=== PATIENT | female | born 1950 | race Caucasian/White ===

== ENCOUNTER 2016-09-15 04:32 | Observation (INO) | payer OTHER ==
[2016-09-15] VITALS (7 sets, daily range): BP systolic 119–161; BP diastolic 63–82; PULSE 57–69; RESP 18–20; TEMP 96.1–97.9; O2SAT 97–100
[~2016-09-15] VITALS: Ht 149.9 cm; Wt 54.1 kg
[2016-09-15] MEDS ORDERED: SODIUM CHLORIDE 0.9% FLUSH 5 ML FLUSH IVF PRN ×3 (05:15→07:30)
[2016-09-15] MEDS ORDERED: ASPIRIN 81 MG CHEW TAB PO ONE (05:15)
[2016-09-15 05:21] LABS: AUTOMATED NEUTROPHIL # 2.3 TH/MM3 (1.8-7.7); BASOPHIL % 0.9 % (0.0-2.0); EOSINOPHIL # 0.1 TH/MM3 (0-0.4); EOSINOPHIL % 2.5 % (0.0-4.0); HEMATOCRIT 37.1 % (35.0-46.0); HEMO FLAGS DIFF FINAL; LYMPH % 29.7 % (9.0-44.0); LYMPHOCYTE # 1.3 TH/MM3 (1.0-4.8); MEAN CELL VOLUME 83.6 FL (80.0-100.0); MEAN CORPUSCULAR HEMOGLOBIN 27.9 PG (27.0-34.0); MEAN CORPUSCULAR HGB CONC 33.4 % (32.0-36.0); MONO % 12.6 % (0.0-8.0); NEUT % 54.3 % (16.0-70.0); PLATELET COUNT 168 TH/MM3 (150-450); RED BLOOD COUNT 4.44 MIL/MM3 (4.00-5.30); RED CELL DISTRIBUTION WIDTH 13.4 % (11.6-17.2); WHITE BLOOD COUNT 4.2 TH/MM3 (4.0-11.0)
[2016-09-15 05:27] LABS: POTASSIUM 3.7 MEQ/L (3.5-5.1)
[2016-09-15 05:30] LABS: BICARBONATE 27.5 MEQ/L (21.0-32.0); MAGNESIUM 2.2 MG/DL (1.5-2.5)
[2016-09-15 05:32] LABS: APTT (PATIENT) 27.3 SEC (24.3-30.1); PROTHROMBIN TIME - PATIENT 11.4 SEC (9.8-11.6)
--- NOTE | 2016-09-15 06:08 | PD ---
HPI Chief Complaint: Chest Pain Time Seen by Provider: 05:03 Travel History International Travel<30 days: No Contact w/Intl Traveler<30days: No Traveled to known affect area: No History of Present Illness HPI 65-year-old female presents to the emergency department for complaint of chest pain since awakening at 3 AM with radiation into the left upper extremity. Patient states that due to persistent pain follow decided to come to the emergency room for evaluation. In triage pain is 4/10 in intensity presently pain is 0/10 in intensity. Patient did not take aspirin prior to arrival to the emergency department. Patient denies previous history of chest pain. Patient does not describe pain as pleuritic in nature. Patient has past medical history significant for an or rectal carcinoma with resection and radiation and chemotherapy. Patient also has history of type 2 diabetes, peptic ulcer disease, dyslipidemia, depression, previous carpal tunnel syndrome also ganglion cyst removal from left wrist in 1973 and cerebral aneurysm clipping of the right frontal lobe in 1983. Patient is unable to identify exacerbating or alleviating factors. Patient does report prior to going to bed last evening her blood pressure was quite elevated and she was very upset but she was not having chest pain or left upper extremity discomfort at that time. No shortness of breath, no nausea, no vomiting. Patient has been noted by her primary care physician to have elevated blood pressure and borderline diabetes both of which are being managed with diet at this time. PFSH Past Medical History Narrative Medical type 2 diabetes, peptic ulcer disease, dyslipidemia, depression, previous carpal tunnel syndrome ganglion cyst removal from left wrist in 1973 cerebral aneurysm clipping of the right frontal lobe in 1983 no tobacco use nursing notes reviewed Cancer: Yes (HX COLON CA 2007 TX RADIATION TX & CHEMO;) Cardiovascular Problems: No Diabetes: Yes (TYPE ii DIABETES - NO MEDS DIET & EXERCISE CONTROL) Patient Takes Glucophage: No Diminished Hearing: No Endocrine: No Gastrointestinal Disorders: Yes (HX COLON CA 2008 TX RADIATION TX & CHEMO; HX PEPTIC ULCER) Genitourinary: Yes (CHRONIC URINARY TRACT INFECTIONS; HX KIDNEY STONES) Hepatitis: No Hiatal Hernia: No Immune Disorder: No Musculoskeletal: Yes (MINOR ARTHRITIS LEFT KNEE, MILD ARTHRITIS SUZANNA FINGERS) Neurologic: Yes (CEREBRAL ANEURYSM (CLIPPED X 3) FRONTAL LOBE 1983) Psychiatric: Yes (DEPRESSION) Reproductive: No Respiratory: No Thyroid Disease: No Tetanus Vaccination: Unknown Influenza Vaccination: No Past Surgical History Abdominal Surgery: No AICD: No Body Medical Devices: CEREBRAL ANEURYSM (CLIPPED X 3) FRONTAL LOBE Cardiac Surgery: No Ear Surgery: No Endocrine Surgery: No Eye Surgery: No Genitourinary Surgery: Yes (CYSTOSCOPY X 2 2013 & 2008) Gynecologic Surgery: No Joint Replacement: No Neurologic Surgery: Yes (FRONTAL ANEURYSM 3 CLIPS 1983) Oral Surgery: No Pacemaker: No Thoracic Surgery: No Other Surgery: Yes Social History Alcohol Use: No Tobacco Use: No Substance Use: No Allergies-Medications (Allergen,Severity, Reaction): Coded Allergies: Iodine (Verified Allergy, Unknown, HIVES, ITCHING, 09/15/16) Cipro (Verified Adverse Reaction, Unknown, Nausea/Vomiting, 09/15/16) Uncoded Allergies: MRI PRECAUTIONS (Allergy, Unknown, 01/04/14) PATIENT HAS 3 METAL CLIPS FRONTAL RIGHT LOBE FROM ANEURYSM 1984 - Reported Meds & Prescriptions Reported Meds & Active Scripts Active No Active Prescriptions or Reported Medications Review of Systems Except as stated in HPI: all other systems reviewed are Neg General / Constitutional: No: Fever, Chills HENT: No: Congestion Respiratory: No: Shortness of Breath Gastrointestinal: No: Nausea Genitourinary: No: Flank Pain Musculoskeletal: No: Myalgias, Arthralgias Skin: No Rash Neurologic: No: Weakness Psychiatric: Positive: Anxiety Endocrine: No: Heat Intolerance Hematologic/Lymphatic: No: Easy Bruising Physical Exam Narrative GENERAL: Well developed well-nourished female in no acute distress no respiratory distress SKIN: Warm and dry. HEAD: Normocephalic. EYES: No scleral icterus. No injection or drainage. NECK: Supple, trachea midline. No JVD or lymphadenopathy. CARDIOVASCULAR: Regular rate and rhythm without murmurs, gallops, or rubs. RESPIRATORY: Breath sounds equal bilaterally. No accessory muscle use. GASTROINTESTINAL: Abdomen soft, non-tender, nondistended. MUSCULOSKELETAL: No cyanosis, or edema. BACK: Nontender without obvious deformity. No CVA tenderness. Data Data Last Documented VS Vital Signs Date Time Temp Pulse Resp B/P Pulse Ox O2 Delivery O2 Flow Rate FiO2 09/15/16 05:10 69 20 149/79 99 09/15/16 05:10 Nasal Cannula 2 Orders Electrocardiogram (09/15/16 05:03) Basic Metabolic Panel (Bmp) (09/15/16 05:03) Ckmb (Isoenzyme) Profile (09/15/16 05:03) Complete Blood Count With Diff (09/15/16 05:03) Magnesium (Mg) (09/15/16 05:03) Prothrombin Time / Inr (Pt) (09/15/16 05:03) Act Partial Throm Time (Ptt) (09/15/16 05:03) Troponin I (09/15/16 05:03) Chest, Single Ap (09/15/16 05:03) Ecg Monitoring (09/15/16 05:03) Bilateral Bp Monitoring (09/15/16 05:03) Iv Access Insert/Monitor (09/15/16 05:03) Oximetry (09/15/16 05:03) Oxygen Administration (09/15/16 05:03) Aspirin Chew (Aspirin Chew) (09/15/16 05:15) Sodium Chloride 0.9% Flush (Ns Flush) (09/15/16 05:15) Labs Laboratory Tests Test 09/15/16 05:00 White Blood Count 4.2 TH/MM3 Red Blood Count 4.44 MIL/MM3 Hemoglobin 12.4 GM/DL Hematocrit 37.1 % Mean Corpuscular Volume 83.6 FL Mean Corpuscular Hemoglobin 27.9 PG Mean Corpuscular Hemoglobin 33.4 % Concent Red Cell Distribution Width 13.4 % Platelet Count 168 TH/MM3 Mean Platelet Volume 10.2 FL Neutrophils (%) (Auto) 54.3 % Lymphocytes (%) (Auto) 29.7 % Monocytes (%) (Auto) 12.6 % Eosinophils (%) (Auto) 2.5 % Basophils (%) (Auto) 0.9 % Neutrophils # (Auto) 2.3 TH/MM3 Lymphocytes # (Auto) 1.3 TH/MM3 Monocytes # (Auto) 0.5 TH/MM3 Eosinophils # (Auto) 0.1 TH/MM3 Basophils # (Auto) 0.0 TH/MM3 CBC Comment DIFF FINAL Differential Comment Prothrombin Time 11.4 SEC Prothromb Time International 1.0 RATIO Ratio Activated Partial 27.3 SEC Thromboplast Time Sodium Level 140 MEQ/L Potassium Level 3.7 MEQ/L Chloride Level 105 MEQ/L Carbon Dioxide Level 27.5 MEQ/L Anion Gap 8 MEQ/L Blood Urea Nitrogen 12 MG/DL Creatinine 0.62 MG/DL Estimat Glomerular Filtration 97 ML/MIN Rate Random Glucose 100 MG/DL Calcium Level 8.9 MG/DL Magnesium Level 2.2 MG/DL Total Creatine Kinase 95 U/L Troponin I 0.02 NG/ML MDM Medical Decision Making Medical Screen Exam Complete: Yes Emergency Medical Condition: Yes Medical Record Reviewed: Yes Interpretation(s) EKG normal sinus rhythm no acute ST elevation or injury pattern change noted Chest x-ray: Patient refuses study CBC with automated differential values in normal range Metabolic panel within normal limits Troponin I 0.02, not elevated; CK 95 not elevated Coagulation studies within normal range Differential Diagnosis Chest pain, atypical chest pain, ACS, myocardial infarction, PE, aortic dissection, pneumonia, pneumothorax, gastritis, peptic ulcer disease, pancreatitis, biliary colic Narrative Course Patient placed on monitor IV access obtained specimens collected and sent for resulting patient ordered to receive aspirin presently not having pain therefore deferred nitroglycerin EKG reveals no acute ST elevation or injury pattern change Chest x-ray patient refuses chest x-ray study due to previous exposure to radiation At 6:04 AM lab values in normal range but patient complaining of shoulder ache pain10; sl ntg administered; plan for [facility] obs @ 6:10 now willing to have cxr; cad cp risk: female age 65 diet controlled diabetes and htn dyslipidemia and family h/o cad age 40's patient's sister Physician Communication Physician Communication discused with [facility] Diagnosis Primary Impression: Chest pain Qualified Code: R07.2 - Precordial pain Admitting Information Admitting Physician Requests: Observation Scripts No Active Prescriptions or Reported Meds Tri Bridges MD Sep 15, 2016 06:08
--- NOTE | 2016-09-15 06:44 | RADHPO ---
EXAM DATE/TIME: 09/15/2016 06:11 [place] COMPARISON: No previous studies available for comparison. INDICATIONS : Chest pain. MEDICAL HISTORY : Carcinoma, colon. Renal calculi. Arthritis. Cerebral aneurysm, Frontal aneurysm, Diabetes, Depres erika SURGICAL HISTORY : Cystoscopy ENCOUNTER: Initial ACUITY: 1 day PAIN SCORE: 7/10 LOCATION: Bilateral chest FINDINGS: A single view of the chest demonstrates the lungs to be symmetrically aerated without evidence of mas s, infiltrate or effusion. The cardiomediastinal contours are unremarkable. Osseous structures are intact. CONCLUSION: No acute disease. Terry Grajeda MD on September 15, 2016 at 6:43 Board Certified Radiologist. This report was verified electronically.
[2016-09-15] MEDS ORDERED: ONDANSETRON HCL 4 MG/2 ML VIAL IV PRN (07:30)
[2016-09-15] MEDS ORDERED: ACETAMINOPHEN 500 MG CPLT PO PRN (07:30)
[2016-09-15] MEDS ORDERED: ACETAMINOPHEN/HYDROcodone 325 MG/7.5 MG TAB PO PRN (07:30)
[2016-09-15] MEDS ORDERED: NITROGLYCERIN 0.4 MG SL 25 TABS/BTL SL PRN (07:30)
[2016-09-15] MEDS ORDERED: MORPHINE SULFATE 4 MG/ML INJ IV PRN (07:30)
[2016-09-15] MEDS ORDERED: FAMOTIDINE 20 MG TAB PO SCH (09:00)
[2016-09-15] MEDS ORDERED: SODIUM CHLORIDE 0.9% FLUSH 5 ML FLUSH IVF SCH ×2 (09:00)
--- NOTE | 2016-09-15 09:12 | HHI.HP ---
[facility] Chasity Corona M.D. Admission Diagnosis chest pain Diagnoses: (1) Atypical chest pain Diagnosis: Principal (2) HTN (hypertension) Diagnosis: Principal Chief Complaint: chest pain Travel History International Travel<30 Days: No Contact w/Intl Traveler <30 Da: No Traveled to Known Affected Are: No History of Present Illness 65-year-old female with history of diet-controlled diabetes and hyperlipidemia, cerebral aneurysm, peptic ulcers, depression, and arthritis presents with complaint of chest pain is admitted chest pain center. Patient states that her blood pressure was high last night systolic in the 160s. She states she had a headache at that time. She states she tried to drink some chamomile tea and relax and then fell asleep but awoke at 3 AM with pain over the left lateral chest describing it as an "ache" with pain in the left upper arm. She states it was constant until 5:30 when she received aspirin in the ED which helped alleviate the pain. She denies any diaphoresis, numbness or tingling, radiation of pain to the neck/jaws/back, or shortness of breath associated with the pain. She states the pain at worst was 34/10, and is currently a 0.5/10. She states yesterday she did use the pull-down machine working out and thinks pain might be due to that. Patient has had increased stress recently. She additionally has had heartburn for 2 days prior but denies current pain feeling similar. She admits to shortness of breath on exertion for the past 2 months stating she breathes harder than before after walking upstairs. She does admit to being active walking twice a day but states she has not been as active recently as she was sick with upper respiratory symptoms for 2 months starting in May. She denies any recent fevers or chills or cough but does admit some nasal congestion. She denies any pleuritic pain. Denies any abdominal pain, nausea, vomiting, or diarrhea. She denies any history of DVT or pulmonary embolus, active cancer, exogenous estrogen use, hemoptysis, recent hospitalization/trauma/surgery in the last 3 months, leg swelling, recent leg immobilization, or recent sedentary travel. Patient had a treadmill stress test years ago in [place] which was normal. Patient admits to chronic low back pain. Patient has a history of arthritis and torn meniscus in her knee and does require a knee brace when walking. Review of Systems Constitutional: DENIES: Diaphoretic episodes, Fever, Chills, Dizziness Eyes: DENIES: Blurred vision Respiratory: DENIES: Cough, Hemoptysis, Shortness of breath Cardiovascular: COMPLAINS OF: Chest pain, Dyspnea on Exertion, DENIES: Lower Extremity Edema Gastrointestinal: DENIES: Abdominal pain, Diarrhea, Nausea, Vomiting Genitourinary: DENIES: Urinary frequency, Dysuria Musculoskeletal: COMPLAINS OF: Back pain (chronic), DENIES: Neck pain Integumentary: DENIES: Rash Neurologic: COMPLAINS OF: Headache, DENIES: Paresthesias ENT: + nasal congestion PSYCH: + increased stress Past Family Social History Past Medical History Type 2 diabetes, diet-controlled Hyperlipidemia, diet controlled Peptic ulcer 2007 Depression H/o leaking cerebral aneurysm (patient denies vascular disorder) Colon cancer 2007 with radiation and chemotherapy Chronic UTIs, but patient states last UTI was in 2014 Arthritis L knee and fingers Carpal tunnel syndrome Past Surgical History R knee meniscus repair 2013 Cystoscopy 2008 and 2013 Leaking cerebral aneurysm in frontal lobe, clipped in 1983 Ganglion cyst removal from left wrist 1973 Reported Medications No Active Prescriptions or Reported Medications Allergies: Coded Allergies: Iodine (Verified Allergy, Unknown, HIVES, ITCHING, 09/15/16) Cipro (Verified Adverse Reaction, Unknown, Nausea/Vomiting, 09/15/16) Uncoded Allergies: MRI PRECAUTIONS (Allergy, Unknown, 01/04/14) PATIENT HAS 3 METAL CLIPS FRONTAL RIGHT LOBE FROM ANEURYSM 1983 - Family History Sister: at age 41 from CAD, obese. Mother: Popliteal aneurysms and aneurysm in the abdomen; ovarian cancer, osteoarthritis, osteoporosis, scoliosis. Father: history not well known Social History Occasional alcohol use. Quit smoking cigarettes in 1998. Prior to this smoked one pack per day; started smoking at age of 19. Denies history of illicit drug use. Physical Exam Vital Signs Vital Signs Date Time Temp Pulse Resp B/P Pulse Ox O2 Delivery O2 Flow Rate FiO2 09/15/16 08:29 74 16 135/69 99 09/15/16 06:00 57 20 161/68 98 159/67 09/15/16 05:30 64 20 147/63 98 09/15/16 05:20 65 20 98 09/15/16 05:10 69 20 149/79 99 09/15/16 05:10 100 Nasal Cannula 2 Physical Exam GENERAL: This is a pleasant well-nourished, well-developed patient, in no apparent distress. SKIN: No rashes, ecchymoses or lesions. Warm and dry. HEAD: Atraumatic. Normocephalic. EYES: No scleral icterus. No injection or drainage. NECK: Trachea midline. CHEST: No reproducible chest wall tenderness. CARDIOVASCULAR: Regular rate and rhythm without murmurs, gallops, or rubs. RESPIRATORY: Clear to auscultation. Breath sounds equal bilaterally. No wheezes , rales, or rhonchi. GASTROINTESTINAL: Abdomen soft, non-tender, nondistended. No guarding. MUSCULOSKELETAL: 2+ left distal radial pulse. No tenderness to palpation over the left upper arm. No swelling of the left arm. No lower extremity edema bilaterally. BACK: No tenderness over the cervical, thoracic or lumbar spine or musculature. NEUROLOGICAL: Awake and alert. Motor grossly within normal limits. Five out of 5 hoop expander strength bilaterally and 5/5 strength in B/L quadriceps. Normal speech. Laboratory Laboratory Tests Test 09/15/16 09/15/16 05:00 08:15 White Blood Count 4.2 Red Blood Count 4.44 Hemoglobin 12.4 Hematocrit 37.1 Mean Corpuscular Volume 83.6 Mean Corpuscular Hemoglobin 27.9 Mean Corpuscular Hemoglobin 33.4 Concent Red Cell Distribution Width 13.4 Platelet Count 168 Mean Platelet Volume 10.2 Neutrophils (%) (Auto) 54.3 Lymphocytes (%) (Auto) 29.7 Monocytes (%) (Auto) 12.6 Eosinophils (%) (Auto) 2.5 Basophils (%) (Auto) 0.9 Neutrophils # (Auto) 2.3 Lymphocytes # (Auto) 1.3 Monocytes # (Auto) 0.5 Eosinophils # (Auto) 0.1 Basophils # (Auto) 0.0 CBC Comment DIFF FINAL Differential Comment Prothrombin Time 11.4 Prothromb Time International 1.0 Ratio Activated Partial 27.3 Thromboplast Time Sodium Level 140 Potassium Level 3.7 Chloride Level 105 Carbon Dioxide Level 27.5 Anion Gap 8 Blood Urea Nitrogen 12 Creatinine 0.62 Estimat Glomerular Filtration 97 Rate Random Glucose 100 Calcium Level 8.9 Magnesium Level 2.2 Total Creatine Kinase 95 76 Troponin I 0.02 0.02 Result Diagram: 09/15/16 0500 09/15/16 0500 Imaging Last Impressions Chest X-Ray 09/15/16 0503 Signed Impressions: Service Date/Time: Thursday, September 15, 2016 06:11 - CONCLUSION: No acute disease. Terry Grajeda MD Assessment and Plan Assessment and Plan 65-year-old female with: Atypical chest pain: EKGs x 3 personally interpreted with sinus rhythm, stable heart rate, and no evidence of ischemia. Chest x-ray personally interpreted with no acute disease. Labs unremarkable. Troponin 3 < 0.02. Patient admits to increased shortness of breath after exertion but she has no lower extremity edema, lungs are clear, and no orthopnea evident on exam. No indication of CHF. -Patient received 162 mg of aspirin @ 0528 hours. Continue daily aspirin. -Nitro/[place]/morphine prn chest pain -Patient is fairly active although not as much recently and she has issues with her knee and requires a brace when walking which could be potentially hazardous with the incline of treadmill, etc. For this reason Lexiscan nuclear test will be performed provided ACS ruled out and patient is agreeable to this. Hypertension: Patient states she has developed hypertension more recently. She saw her primary care physician on 09/02/16 and has been keeping a log of her blood pressures but states SBP fluctuates anywhere from 130 to 160 and she is currently not on medication. SBP on arrival was in the 140s but has gone up to 161; back in the upper 140s this morning. -Monitor BP -Clonidine prn Diabetes: Patient states her last hemoglobin A1c was 6.?. Diet controlled. BGL 100 this am. -Monitor BGls bedside. Low dose SSI as needed. Do not administer SSI if NPO and BGL < 200. GI prophylaxis: Pepcid 20 mp po bid as patient has h/o peptic ulcer. DVT prevention: SCDs. After reviewing EKGs and enzymes, nuclear stress test was ordered at 1209. Nuclear department was called and informed. RN called nuclear department to check on status of medication dose, and was informed that dose should be here within the hour by 3 o'clock. Unfortunately the patient informed me at approximately 1410 that she would like to sign out AGAINST MEDICAL ADVICE and did not desire to wait any longer. She is informed the risks of leaving AGAINST MEDICAL ADVICE including OK or . She states she will follow-up with her primary care physician and get outpatient stress test arranged. She is advised to return for any emergency. She understands. Discussed Condition With patient Amy Putnam Sep 15, 2016 09:12
[2016-09-15 11:08] LABS: CREATINE KINASE 78 U/L (26-192)
--- NOTE | 2016-09-15 13:27 | EKG ---
Date Performed: 09/15/2016 Time Performed: 04:40:50 PTAGE: 65 years EKG: Sinus rhythm . Leftward axis Borderline ECG PREVIOUS TRACING : 09/15/2016 04.39 No significant change from previous tracing noted. DOCTOR: Abdias Belcher Interpretating Date/Time 09/15/2016 13:26:06
[2016-09-15] MEDS ORDERED: DEXTROSE 50% IN WATER 50 ML VIAL(D50) IV PUSH PRN (14:00)
[2016-09-15] MEDS ORDERED: GLUCAGON 1 MG/ML VIAL OTHER PRN (14:00)
[2016-09-15] MEDS ORDERED: INSULIN ASPART SUPPLEMENTAL SCALE SQ SCH (16:00)
[2016-09-16] MEDS ORDERED: ASPIRIN 325 MG TAB PO SCH (09:00)
--- NOTE | 2016-09-16 12:42 | EKG ---
Date Performed: 09/15/2016 Time Performed: 11:55:06 PTAGE: 65 years EKG: Sinus rhythm Leftward axis Borderline ECG Compared to prior tracing no significant change PREVIOUS TRACING DOCTOR: Wiliam Prakash Interpretating Date/Time 09/16/2016 12:37:35
--- NOTE | 2016-09-16 13:33 | EKG ---
Date Performed: 09/15/2016 Time Performed: 08:01:04 PTAGE: 65 years EKG: Sinus bradycardia. Leftward axis Borderline ECG Compared to prior tracing no significant ch ena PREVIOUS TRACING : 09/15/2016 04.40 DOCTOR: Wiliam Prakash Interpretating Date/Time 09/16/2016 13:31:29
== END 2016-09-15 14:51 | disposition left against medical advice (07) ==
LOC: PHED 04:32 → PHEDA 06:14 → PH3A 08:32
PROVIDERS: ADMIT Hospitalist; ATTEND Hospitalist
DX: R07.89 Other chest pain (principal); I10 Essential (primary) hypertension; M54.5 Low back pain; G89.29 Other chronic pain; E11.9 Type 2 diabetes mellitus without complications; E78.5 Hyperlipidemia, unspecified; M17.12 Unilateral primary osteoarthritis, left knee; R94.31 Abnormal electrocardiogram [ECG] [EKG]; Z87.891 Personal history of nicotine dependence; Z85.048 Personal history of other malignant neoplasm of rectum, rectosigmoid junction, and anus; Z87.11 Personal history of peptic ulcer disease; Z87.442 Personal history of urinary calculi
CPT/HCPCS: 71010; 80048; 82550; 83735; 84484; 85025; 85610; 85730; 93005; 99285; G0378